=== PATIENT | male | born 1945 | race African-American/Black ===

== ENCOUNTER 2024-11-28 06:03 | Emergency (ER) | payer MEDICARE ==
[~2024-11-28] VITALS: Ht 182.9 cm; Wt 82.0 kg
[2024-11-28 06:24] VITALS: TEMP 36.9; O2SAT 95
[2024-11-28] MEDS ORDERED: AMOX1TAB16 MT (07:07)
[2024-11-28] MEDS ORDERED: CHLO473M13 MT (07:07)
[2024-11-28 07:24] VITALS: BP 124/57; PULSE 66; RESP 17; O2SAT 95
== END 2024-11-28 07:26 | disposition home or self-care (01) ==
LOC: ER 06:03
DX: K04.7 Periapical abscess without sinus (principal); I10 Essential (primary) hypertension
CPT/HCPCS: 99283